=== PATIENT | male | born 1975 | race Caucasian/White ===

== ENCOUNTER 2019-06-08 18:36 | Emergency (ER) | payer BC ==
[~2019-06-08] VITALS: Ht 180.3 cm; Wt 104.3 kg
[2019-06-08] MEDS ORDERED: ERYT1OIN LEFTEYE (19:16)
[2019-06-08] MEDS ORDERED: Zovirax800 MG PO (19:18)
== END 2019-06-08 19:36 | disposition home or self-care (01) ==
LOC: ER 18:36
DX: H10.9 Unspecified conjunctivitis (principal)
CPT/HCPCS: 99282